=== PATIENT | male | born 1980 | race Caucasian/White ===

== ENCOUNTER 2022-11-16 16:56 | Emergency (ER) | payer BC, SELFPAY ==
--- NOTE | 2022-11-16 17:00 | DI.RAD_ITS ---
Exam(s) XR SHOULDER LT COMPLETE 2+V EXAM: XR SHOULDER LT COMPLETE 2+V CLINICAL HISTORY: trauma. TECHNIQUE: 2D digital imaging was performed. COMPARISON: No exams were available for comparison FINDINGS: Five views. No evidence of fracture nor dislocation. Tiny 1-2 millimeter osteophytic density is noted anteriorly on the axial view. No calcifications seen in the subacromial space. No degenerative changes in the glenohumeral and AC joints. Bone density normal. No osseous lesions. Clavicle unremarkable. IMPRESSION: No fractures. Possible subtle calcific rotator cuff tendinitis. DATA REPOSITORY: RADIATION DOSE DELIVERED:
--- NOTE | 2022-11-16 17:00 | ED.GENADUL_ITS ---
Discharge Plan Disposition Patient Disposition: Home Discharge Details Clinical Impression: Injury of shoulder, left, Closed fracture of tuft of distal phalanx of left middle finger Primary Care Provider: Faby Cruz V ED Provider: Jarret Lopez Home Meds and New Rx's Prescriptions: No Action No Known Home Meds Discharge Instructions Instructions: Finger Fracture (ED), Shoulder Sprain (ED) Additional Instructions: Your x-ray of the shoulder reveals no fracture or dislocation. As we discussed there may potentially be rotator cuff injury. Would continue range of motion, ice, ibuprofen. The finger does have a tuft fracture which should heal without any problems. Wear the splint for protection. Ice and elevate. Return to ED for any numbness, weakness involving your arm, chest pain or shortness of breath, other concerns. Medical Decision Making Patient presenting with left upper extremity injury status post fall last night. Will obtain x-rays of left shoulder and left long finger. Otherwise no other concern for injury, no spinal pain or neurologic symptoms, no head strike. X-ray per my review with no fracture or dislocation of the shoulder. There is a tuft fracture involving the left long finger. Otherwise finger is negative. Patient is placed in a stack splint to protect the tuft fracture. Discussed range of motion, ice, ibuprofen and follow-up with PCP 1 to 2 weeks if no improvement in the shoulder. Finger should improve in the next 1 to 2 weeks as well especially as the bruising and swelling resolves. Return precautions provided. HPI General Mode of arrival: ambulatory . Date/Time Provider Initiated Documentation: 11/16/22 17:00 . Limitations to Documentation: no limitations . Information obtained by: patient . HPI Narrative: Patient presents to ED with left hand and shoulder pain status post slip and fall last evening. Patient is right-hand dominant. Patient has bruising and swelling to the left long finger as well as pain with range of motion of the left shoulder. He denies any head strike. He denies any spinal pain. He has no chest pain or shortness of breath. He has an abrasion on his left knee but no pain and normal range of motion. Denies any numbness or weakness. Related Data Home Medications Medication Instructions Recorded Confirmed Unknown [No Known Home Meds] 11/16/22 11/16/22 Allergies Allergy/AdvReac Type Severity Reaction Status Date / Time No Known Allergies Allergy Unverified 11/16/22 17:03 Review of Systems Narrative: per HPI PFSH All Active Problems (Updated 11/16/22 @ 18:47 by Jarret Lopez MD) Injury of shoulder, left (Acute) Closed fracture of tuft of distal phalanx of left middle finger (Acute) Medical History No significant past medical history Surgical History No significant past surgical history Social History Smoking/Tobacco Use Status: Never Smoking risk assessment performed?: Yes Alcohol Intake: never Drug use: Never Substance use type: does not use Housing: house Do you feel safe at home: Yes Do you feel safe in your relationship?: Yes Exam Narrative Exam Narrative: Const: WDWN male in NAD. HEENT: NC/AT. Normal facial exam. Neck: Supple. Trachea midline. No spine tenderness. Lungs: Normal respiratory effort. Cor: RRR. Good radial pulses. Back: No spine tenderness. Neuro: A+O x 3. Normal speech, mentation, gait. Cranial nerves II - XII grossly intact. No gross motor or sensory deficit. Ext: No C/C/E. Decreased range of motion left shoulder due to pain though able to range through majority of motion. No tenderness along the clavicle. Left long finger is swollen and bruised especially distally. However seems to have decent range of motion. Right upper extremity and bilateral lower extremities normal. Skin: Warm and dry with small abrasion left knee..
[2022-11-16 17:01] VITALS: BP 133/88; PULSE 82; RESP 20; TEMP 36.9; O2SAT 99
--- NOTE | 2022-11-16 18:18 | DI.RAD_ITS ---
Exam(s) XR FINGER LT MIDDLE EXAM: XR FINGER LT MIDDLE CLINICAL HISTORY: trauma. TECHNIQUE: 2D digital imaging was performed. COMPARISON: No exams were available for comparison FINDINGS: 3 views There is a fracture of the tuft of the distal phalanx of the 3rd finger. No significant displacement . No other fractures identified. No radiopaque foreign bodies. IMPRESSION: Fracture of the tuft of the distal phalanx 3rd finger. DATA REPOSITORY: RADIATION DOSE DELIVERED:
--- NOTE | 2022-11-16 18:29 | DI.VRAD_ITS ---
PROCEDURE INFORMATION: Exam: XR Left Shoulder Exam date and time: 11/16/2022 6:11 PM Age: 42 years old Clinical indication: Injury or trauma; Fall; Blunt trauma (contusions or hematomas); Shoulder; Left; Injury date: 11/15/22 TECHNIQUE: Imaging protocol: Radiologic exam of the left shoulder. Views: 2 or more views. COMPARISON: No relevant prior studies available. FINDINGS: Bones/joints: No acute fracture or subluxation. No significant degenerative changes are seen. Soft tissues: There could be a miniscule calcification in the rotator cuff region. IMPRESSION: No acute bony pathology. Possible minimal calcific tendinitis. Dictated and Authenticated by: Marielos Nixon MD. Ordering:ALISON Wheat MD
--- NOTE | 2022-11-16 18:29 | DI.VRAD_ITS ---
PROCEDURE INFORMATION: Exam: XR Left Finger(s) Exam date and time: 11/16/2022 6:07 PM Age: 42 years old Clinical indication: Injury or trauma; Fall; Blunt trauma (contusions or hematomas); Left; Middle finger; Injury date: 11/15/22 TECHNIQUE: Imaging protocol: Radiologic exam of the left fingers. Views: Minimum 2 views. COMPARISON: No relevant prior studies available. FINDINGS: Bones/joints: Acute fracture of the 3rd distal phalangeal tuft without significant displacement. Soft tissues: Soft tissue swelling surrounding the fracture site. Small benign-appearing calcifications distally in the 3rd digit. IMPRESSION: Acute fracture of the 3rd distal phalangeal tuft without significant displacement. Dictated and Authenticated by: Marielos Nixon MD. Ordering:ALISON Wheat MD
== END 2022-11-16 19:57 | disposition home or self-care (01) ==
PROVIDERS: Emergency Provider Emergency Medicine; PCP Family Medicine
DX: M25.512 Pain in left shoulder (principal); S62.663A Nondisplaced fracture of distal phalanx of left middle finger, initial encounter for closed fracture; W18.39XA Other fall on same level, initial encounter
CPT/HCPCS: 99283; 73030; 73140

== ENCOUNTER 2023-03-25 17:57 | Outpatient (REF) | payer BC, SELFPAY ==
[2023-03-25 19:01] LABS: Calculated LDL 173 mg/dL (<100); Cholesterol 238 mg/dL (<200); Glucose 110 mg/dL (74-106); HDL Cholesterol 35 mg/dL (40-60); Triglyceride 153 mg/dL (<150)
== END 2023-03-25 17:58 | disposition home or self-care (01) ==
LOC: NCHCN 17:57
PROVIDERS: PCP Family Medicine; Visit Provider Nurse Practitioner Family
DX: Z00.00 Encounter for general adult medical examination without abnormal findings (principal)
CPT/HCPCS: 80061; 82947; 84154